=== PATIENT | female | born 1980 | race Caucasian/White ===

== ENCOUNTER 2018-03-06 09:16 | Emergency (ER) | payer BC ==
[2018-03-06] MEDS ORDERED: Sodium Chloride 0.9% 10 ML Syringe FLUSH PRN (09:24)
[2018-03-06] MEDS ORDERED: Iopamidol 612 MG/ML 100 ML Bottle IVPUSH ONE (10:01)
[2018-03-06 10:05] LABS: CHLORIDE,CL 104 mmol/L (98-107); SODIUM,NA 140 mmol/L (136-145)
[2018-03-06] MEDS ORDERED: dimenhyDRINATE 50 MG Tab PO ONE (11:38)
--- NOTE | 2018-03-06 14:53 | EDM.PDOC ---
ED HPI GENERAL MEDICAL PROBLEM - General Chief Complaint: Neuro Symptoms/Deficits Stated Complaint: LEFT SIDE NUMBNESS Time Seen by Provider: 03/06/18 09:20 Source of Information: Reports: Patient, Family History Limitations: Reports: No Limitations - History of Present Illness INITIAL COMMENTS - FREE TEXT/NARRATIVE: Pt. reported experiencing L sided facial and extremity paresthesia starting approx. at 0830 this AM. She states that she was also acutely vertiginous with symptoms worsening with turning of head to the L. She denies any acute vision loss or change. No head trauma. She denies any weakness or extremity heaviness recently. She states that she did have a headache last night. Denies any recent travel out of country. She states that she is a non-smoker and has not recently had any preventative medical care. Onset: Today Onset Date: 03/06/18 Onset Time: 08:30 Duration: Constant Location: Reports: Face (L side), Upper Extremity, Left, Lower Extremity, Left Quality: Reports: Other (paresthesia ) - Related Data Allergies Allergy/AdvReac Type Severity Reaction Status Date / Time No Known Allergies Allergy Verified 03/06/18 09:24 ED ROS GENERAL - Review of Systems Review Of Systems: See Below Constitutional: Reports: No Symptoms HEENT: Reports: Other (L sided facial numbness) Respiratory: Reports: No Symptoms Cardiovascular: Reports: No Symptoms Endocrine: Reports: No Symptoms GI/Abdominal: Reports: No Symptoms : Reports: No Symptoms Musculoskeletal: Reports: Other ( L upper and lower extremity numbness) Skin: Reports: No Symptoms Neurological: Reports: Other (Please see above. No acute vision loss or change. No trauma. No difficulty with speech or ambulation.) Psychiatric: Reports: No Symptoms Hematologic/Lymphatic: Reports: No Symptoms Immunologic: Reports: No Symptoms ED EXAM, GENERAL - Physical Exam Exam: See Below Exam Limited By: No Limitations General Appearance: Alert, WD/WN, No Apparent Distress Eye Exam: Bilateral Eye: EOMI, Normal Fundi, Normal Inspection, PERRL Ears: Normal External Exam, Normal Canal, Hearing Grossly Normal, Normal TMs Ear Exam: Bilateral Ear: Auricle Normal, Canal Normal, TM normal Nose: Normal Inspection, Normal Mucosa, No Blood Throat/Mouth: Normal Inspection, Normal Lips, Normal Teeth, Normal Gums, Normal Oropharynx, Normal Voice, No Airway Compromise Head: Atraumatic, Normocephalic Neck: Normal Inspection, Supple, Non-Tender, Full Range of Motion Respiratory/Chest: No Respiratory Distress, Lungs Clear, Normal Breath Sounds, No Accessory Muscle Use, Chest Non-Tender Cardiovascular: Normal Peripheral Pulses, Regular Rate, Rhythm, No Edema, No Gallop, No JVD, No Murmur, No Rub Peripheral Pulses: 4+: Radial (L), Radial (R) GI/Abdominal: Normal Bowel Sounds, Soft, Non-Tender, No Organomegaly, No Distention, No Abnormal Bruit, No Mass (Female) Exam: Deferred Rectal (Female) Exam: Deferred Back Exam: Normal Inspection, Full Range of Motion, NT Extremities: Normal Inspection, Normal Range of Motion, Non-Tender, Normal Capillary Refill, No Pedal Edema Neurological: Other (See attached NIH scale (score is 0)) Psychiatric: Normal Affect, Normal Mood Skin Exam: Warm, Dry, Intact, Normal Color, No Rash Lymphatic: No Adenopathy EKG INTERPRETATION Rhythm: NSR [place]: Normal P-Wave: Present QRS: Normal ST-T: Normal QT: Normal Course - Orders/Labs/Meds Orders: Active Orders 24 hr Category Date Time Status Blood Glucose Check, Bedside [RC] ONETIME Care 03/06/18 09:26 Active EKG Documentation Completion [RC] STAT Care 03/06/18 09:25 Active Ang Head [CT] Stat Exams 03/06/18 09:54 Taken Head wo Cont [CT] Stat Exams 03/06/18 09:25 Taken Sodium Chloride 0.9% [Saline Flush] Med 03/06/18 09:24 Active 10 ml FLUSH ASDIRECTED PRN Peripheral IV Insertion Adult [OM.PC] Routine Oth 03/06/18 09:25 Ordered Medication Orders Sodium Chloride (Saline Flush) 10 ml FLUSH ASDIRECTED PRN PRN Reason: Keep Vein Open Labs: Laboratory Tests 03/06/18 03/06/18 03/06/18 Range/Units 09:29 09:38 09:38 WBC 10.7 H (4.0-10.0) x10^3/uL RBC 5.09 (4.00-5.50) x10^6/uL Hgb 13.8 (12.0-16.0) g/dL Hct 41.5 (33.0-47.0) % MCV 81.5 (78.0-93.0) fL MCH 27.1 (26.0-32.0) pg MCHC 33.3 (32.0-36.0) g/dL RDW Coeff of Jimmy 13.0 (10.0-15.0) % Plt Count 331 (130-400) x10^3/uL Neut % (Auto) 59.9 (50.0-80.0) % Lymph % (Auto) 30.2 (25.0-50.0) % [place] % (Auto) 8.2 (2.0-11.0) % Eos % (Auto) 1.2 (0.0-4.0) % Baso % (Auto) 0.5 (0.2-1.2) % PT 9.9 (9.6-11.4) SEC INR 0.9 L (2.0-3.5) Sodium (136-145) mmol/L Potassium (3.5-5.1) mmol/L Chloride (98-107) mmol/L Carbon Dioxide (21-32) mmol/L Anion Gap (10-20) mmol/L BUN (7-18) mg/dL Creatinine (0.55-1.02) mg/dL Est Cr Clr Drug Dosing mL/min Estimated GFR (MDRD) Glucose (74-106) mg/dL POC Glucose 82 (74-106) mg/dL Calcium (8.5-10.1) mg/dL Corrected Calcium (8.5-10.1) mg/dL Total Bilirubin (0.2-1.0) mg/dL AST (15-37) U/L ALT (14-59) U/L Alkaline Phosphatase (46-116) U/L POC Troponin I (0.00-0.08) ng/mL C-Reactive Protein (<=0.9) mg/dL Total Protein (6.4-8.2) g/dL Albumin (3.4-5.0) g/dL Globulin Albumin/Globulin Ratio 03/06/18 03/06/18 Range/Units 09:38 09:44 WBC (4.0-10.0) x10^3/uL RBC (4.00-5.50) x10^6/uL Hgb (12.0-16.0) g/dL Hct (33.0-47.0) % MCV (78.0-93.0) fL MCH (26.0-32.0) pg MCHC (32.0-36.0) g/dL RDW Coeff of Jimmy (10.0-15.0) % Plt Count (130-400) x10^3/uL Neut % (Auto) (50.0-80.0) % Lymph % (Auto) (25.0-50.0) % [place] % (Auto) (2.0-11.0) % Eos % (Auto) (0.0-4.0) % Baso % (Auto) (0.2-1.2) % PT (9.6-11.4) SEC INR (2.0-3.5) Sodium 140 (136-145) mmol/L Potassium 3.5 (3.5-5.1) mmol/L Chloride 104 (98-107) mmol/L Carbon Dioxide 27 (21-32) mmol/L Anion Gap 12.5 (10-20) mmol/L BUN 11 (7-18) mg/dL Creatinine 0.7 (0.55-1.02) mg/dL Est Cr Clr Drug Dosing 109.08 mL/min Estimated GFR (MDRD) > 60 Glucose 89 (74-106) mg/dL POC Glucose (74-106) mg/dL Calcium 8.9 (8.5-10.1) mg/dL Corrected Calcium 9.38 (8.5-10.1) mg/dL Total Bilirubin 0.4 (0.2-1.0) mg/dL AST 17 (15-37) U/L ALT 27 (14-59) U/L Alkaline Phosphatase 73 (46-116) U/L POC Troponin I 0.00 (0.00-0.08) ng/mL C-Reactive Protein 2.2 H (<=0.9) mg/dL Total Protein 7.4 (6.4-8.2) g/dL Albumin 3.4 (3.4-5.0) g/dL Globulin 4.0 Albumin/Globulin Ratio 0.85 Meds: Medications Generic Name Dose Route Start Last Admin Trade Name Freq PRN Reason Stop Dose Admin Sodium Chloride 10 ml 03/06/18 09:24 Saline Flush FLUSH ASDIRECTED PRN Keep Vein Open Discontinued Medications Generic Name Dose Route Start Last Admin Trade Name Manuel PRN Reason Stop Dose Admin Dimenhydrinate 50 mg 03/06/18 11:38 03/06/18 11:47 Driminate PO 03/06/18 11:39 50 mg ONETIME ONE Administration Iopamidol 100 ml 03/06/18 10:01 03/06/18 10:34 Isovue-300 (61%) IVPUSH 03/06/18 10:02 100 ml ONETIME ONE Administration - Radiology Interpretation Free Text/Narrative:: CT brain and CTA brain negative for acute pathology Departure - Departure Time of Disposition: 13:00 Disposition: Home, Self-Care 01 Clinical Impression: Paresthesia of left arm and leg - Discharge Information Referrals: Sam Bliss MD [Primary Care Provider] - Forms: ED Department Discharge Additional Instructions: [facility] will be contacting you regarding an appointment for your MRI/MRA. Take an aspirin 81mg once daily. Return to ER if you have worsening symptoms, increased weakness, confusion, headache, difficulty with speech or ambulation. - My Orders Last 24 Hours: My Active Orders 03/06/18 09:24 Sodium Chloride 0.9% [Saline Flush] 10 ml FLUSH ASDIRECTED PRN 03/06/18 09:25 EKG Documentation Completion [RC] STAT Head wo Cont [CT] Stat Peripheral IV Insertion Adult [OM.PC] Routine 03/06/18 09:26 Blood Glucose Check, Bedside [RC] ONETIME 03/06/18 09:54 Ang Head [CT] Stat - Assessment/Plan Last 24 Hours: My Active Orders 03/06/18 09:24 Sodium Chloride 0.9% [Saline Flush] 10 ml FLUSH ASDIRECTED PRN 03/06/18 09:25 EKG Documentation Completion [RC] STAT Head wo Cont [CT] Stat Peripheral IV Insertion Adult [OM.PC] Routine 03/06/18 09:26 Blood Glucose Check, Bedside [RC] ONETIME 03/06/18 09:54 Ang Head [CT] Stat Plan: I spoke with stroke neurologist Dr. Moran at [facility] in [place]. She felt the pt. did not require admission, and felt that she should have an outpatient MRI/MRA this week. I spoke with Dr. Maria Del Carmen Bravo who accepted the pt. for follow-up and ordered the MRI. Pt. was started on Aspirin 81`mg once daily until seen by neuro.
== END 2018-03-06 12:30 | disposition home or self-care (01) ==
LOC: VM.ED 09:16
DX: R20.2 Paresthesia of skin (principal)
CPT/HCPCS: 36415; 70450; 70496; 80053; 82962; 84484; 85025; 85610; 86140; 93005; 99285; A9270-GY; Q9967

== ENCOUNTER 2018-05-15 08:39 | Emergency (ER) | payer BC, OTHER ==
--- NOTE | 2018-05-15 09:06 | EDM.PDOC ---
ED HPI GENERAL MEDICAL PROBLEM - General Chief Complaint: Chest Pain Stated Complaint: Chest Pain Time Seen by Provider: 05/15/18 09:03 Source of Information: Reports: Patient, RN, RN Notes Reviewed History Limitations: Reports: No Limitations - History of Present Illness INITIAL COMMENTS - FREE TEXT/NARRATIVE: Patient presents to the ED at [facility] complaining of left sided chest pain, tingling down left arm, and nausea. Symptoms started around 03:30 this AM. She states these symptoms are not new, but was more concerned with the nausea. She states she had a workup last week for the same symptoms. She states "they" thought it was a migraine, so she was treated as such. She had a CT and MRI of her brain without any acute pathology. She was seen in clinic last week and felt maybe her issues were inner ear. She has been referred to ENT, but is still waiting on a call. She states her epigastric symptoms seem like a twisting or tugging sensation. She has not vomited or had any diarrhea. No headache. No SOB. She also has what she calls "dizzy" spells. She had not recently fallen or had any head injury. No abdominal pain. No focal neurological problems. Onset: Today Onset Date: 05/15/18 Onset Time: 03:30 Left Upper Chest Pain Score (Numeric/FACES): 5 - Related Data Allergies Allergy/AdvReac Type Severity Reaction Status Date / Time No Known Allergies Allergy Verified 05/15/18 08:57 Home Meds: Home Meds . [No Known Home Meds] 05/15/18 [History] ED ROS GENERAL - Review of Systems Review Of Systems: See Below Constitutional: Denies: Fever, Chills, Weakness Respiratory: Denies: Shortness of Breath, Cough Cardiovascular: Reports: Chest Pain. Denies: Blood Pressure Problem, Lightheadedness, Palpitations GI/Abdominal: Reports: Nausea. Denies: Abdominal Pain, Diarrhea, Vomiting Musculoskeletal: Reports: Neck Pain (Left) Skin: Reports: No Symptoms Neurological: Reports: Dizziness, Tingling (Left arm). Denies: Headache, Numbness, Paresthesia ED EXAM, GENERAL - Physical Exam Exam: See Below Exam Limited By: No Limitations General Appearance: Alert, No Apparent Distress Neck: Normal Inspection, Supple, Full Range of Motion Respiratory/Chest: No Respiratory Distress, Lungs Clear, Normal Breath Sounds Cardiovascular: Normal Peripheral Pulses, Regular Rate, Rhythm, Other (left upper chest wall pain is reproducable on palpation) Peripheral Pulses: 2+: Radial (L), Radial (R) GI/Abdominal: Normal Bowel Sounds, Soft, Non-Tender Extremities: Normal Inspection, Normal Capillary Refill Neurological: Alert, Oriented Skin Exam: Warm, Dry, Intact, Normal Color EKG INTERPRETATION EKG Date: 05/15/18 Time: 08:40 Rhythm: NSR Rate (Beats/Min): 105 Blue: Normal P-Wave: Present QRS: Normal ST-T: Normal QT: Normal LA/PQ Interval: 0.17 Comparison: No Change EKG Interpretation Comments: 1. Sinus Tachycardia 2. Possible RV conduction delay 3. Possible anterior OK, probably old Course - Vital Signs Last Recorded V/S: Last Vital Signs Temp 36.8 C 05/15/18 08:40 Pulse 105 H 05/15/18 09:25 Resp 18 05/15/18 08:40 BP 98/54 L 05/15/18 09:25 Pulse Ox 98 05/15/18 08:40 - Orders/Labs/Meds Orders: Active Orders 24 hr Category Date Time Status EKG 12 Lead [EKG Documentation Completion] [RC] STAT Care 05/15/18 09:04 Active Chest 2V [CR] Stat Exams 05/15/18 09:04 Taken Labs: Laboratory Tests 05/15/18 05/15/18 05/15/18 Range/Units 09:17 09:17 09:17 WBC 11.5 H (4.0-10.0) x10^3/uL RBC 5.10 (4.00-5.50) x10^6/uL Hgb 13.9 (12.0-16.0) g/dL Hct 41.1 (33.0-47.0) % MCV 80.6 (78.0-93.0) fL MCH 27.3 (26.0-32.0) pg MCHC 33.8 (32.0-36.0) g/dL RDW Coeff of Jimmy 13.4 (10.0-15.0) % Plt Count 306 (130-400) x10^3/uL Neut % (Auto) 75.9 (50.0-80.0) % Lymph % (Auto) 17.4 L (25.0-50.0) % [place] % (Auto) 5.7 (2.0-11.0) % Eos % (Auto) 0.6 (0.0-4.0) % Baso % (Auto) 0.4 (0.2-1.2) % Sodium 136 (136-145) mmol/L Potassium 3.9 (3.5-5.1) mmol/L Chloride 105 (98-107) mmol/L Carbon Dioxide 28 (21-32) mmol/L Anion Gap 6.9 L (10-20) mmol/L BUN 9 (7-18) mg/dL Creatinine 0.6 (0.55-1.02) mg/dL Est Cr Clr Drug Dosing 108.26 mL/min Estimated GFR (MDRD) > 60 Glucose 114 H (74-106) mg/dL Calcium 9.1 (8.5-10.1) mg/dL Creatine Kinase 49 (26-192) U/L Troponin I < 0.017 (<=0.056) ng/mL Amylase 32 (25-115) U/L Lipase 214 (73-393) U/L Meds: Medications Discontinued Medications Generic Name Dose Route Start Last Admin Trade Name Freq PRN Reason Stop Dose Admin Ondansetron HCl 4 mg 05/15/18 09:30 05/15/18 09:49 Zofran Odt PO 05/15/18 09:31 4 mg ONETIME ONE Administration - Radiology Interpretation Free Text/Narrative:: CXR: No acute process See scanned report in EMR for details Departure - Departure Time of Disposition: 10:07 Disposition: Home, Self-Care 01 Reason for Transfer *Q: Other Condition: Good Clinical Impression: Left arm pain, Nausea Instructions: Nausea, Adult, Musculoskeletal Pain Referrals: Maria Del Carmen Bravo DO [Physician] - Forms: ED Department Discharge Additional Instructions: 1. No acute emergency found 2. Recommend making an appointment with Dr. Maria Del Carmen Bravo to follow up with your symptoms 3. Call us with any questions or concerns - Problem List Review Problem List Initiated/Reviewed/Updated: Yes - My Orders Last 24 Hours: My Active Orders 05/15/18 09:04 EKG 12 Lead [EKG Documentation Completion] [RC] STAT Chest 2V [CR] Stat - Assessment/Plan Last 24 Hours: My Active Orders 05/15/18 09:04 EKG 12 Lead [EKG Documentation Completion] [RC] STAT Chest 2V [CR] Stat Assessment:: Left arm pain/tingling Chest wall pain Plan: Labs and xray discussed with patient. No acute emergent pathology found regarding her symptoms. Recommend she contact [facility] regarding the ENT referral. I asked the patient to schedule an appointment with Dr. Maria Del Carmen Bravo to establish care and further eval/treatment. Given the neck symptoms, this certainly could be a cervical radiculopathy issue. She may benefit from physical therapy. As far as the nausea and "twisting" feeling in the epigastric area, patient may need a CT versus Ultrasound.
[2018-05-15 09:47] LABS: CHLORIDE,CL 105 mmol/L (98-107); SODIUM,NA 136 mmol/L (136-145)
[2018-05-15] MEDS: Ondansetron 4 MG Tab.DIS PO ONE (09:49)
[2018-05-15 09:53] LABS: ANION GAP 6.9 mmol/L (10-20)
== END 2018-05-15 10:25 | disposition home or self-care (01) ==
LOC: VM.ED 08:39
DX: R07.89 Other chest pain (principal); M79.602 Pain in left arm; R11.0 Nausea
CPT/HCPCS: 36415; 71046; 80048; 82150; 82550; 83690; 84484; 85025; 93005; 99284; 99285; A9270

== ENCOUNTER 2018-09-17 15:21 | Emergency (ER) | payer BC ==
--- NOTE | 2018-09-17 15:59 | EDM.PDOC ---
ED HPI GENERAL MEDICAL PROBLEM - General Chief Complaint: Cardiovascular Problem Stated Complaint: palpitations, fluttering Time Seen by Provider: 09/17/18 15:42 Source of Information: Reports: Patient History Limitations: Reports: No Limitations - History of Present Illness INITIAL COMMENTS - FREE TEXT/NARRATIVE: Patient presents with complaints of palpitations, feeling warm, then cool, then more palpitations. Has had similar episodes in the past with a holter monitor that showed some sinus tachycardia. She was placed on 12.5 mg of metoprolol. Echo was also performed, EF 65%, normal size left and right ventricles/atria. Normal valvular function with no stenosis. She denies any prior history of depression or anxiety, though she does admit that since these episodes have started, she does experience some anxiety when they occur. 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: Reports: ED ROS GENERAL - Review of Systems Review Of Systems: See Below Constitutional: Reports: No Symptoms HEENT: Reports: No Symptoms Respiratory: Reports: No Symptoms Cardiovascular: Reports: Palpitations Endocrine: Reports: No Symptoms GI/Abdominal: Reports: No Symptoms : Reports: No Symptoms Musculoskeletal: Reports: No Symptoms Skin: Reports: No Symptoms Neurological: Reports: No Symptoms Psychiatric: Reports: Anxiety Hematologic/Lymphatic: Reports: No Symptoms Immunologic: Reports: No Symptoms ED EXAM, GENERAL - Physical Exam Exam: See Below Exam Limited By: No Limitations General Appearance: Alert, WD/WN, No Apparent Distress Eye Exam: Bilateral Eye: EOMI, PERRL Ears: Normal TMs Nose: Normal Inspection, Normal Mucosa, No Blood Throat/Mouth: Normal Inspection, Normal Lips, Normal Teeth, Normal Gums, Normal Oropharynx, Normal Voice, No Airway Compromise Head: Atraumatic, Normocephalic Neck: Normal Inspection, Supple, Non-Tender, Full Range of Motion Respiratory/Chest: No Respiratory Distress, Lungs Clear, Normal Breath Sounds, No Accessory Muscle Use, Chest Non-Tender Cardiovascular: Normal Peripheral Pulses, Regular Rate, Rhythm, No Edema, No Gallop, No JVD, No Murmur, No Rub Peripheral Pulses: 2+: Posterior Tibial (L), Posterior Tibial (R), Dorsalis Pedis (L), Dorsalis Pedis (R) GI/Abdominal: Normal Bowel Sounds, Soft, Non-Tender, No Organomegaly, No Distention, No Abnormal Bruit, No Mass Extremities: Normal Inspection, Normal Range of Motion, Non-Tender, Normal Capillary Refill, No Pedal Edema Neurological: Alert, Oriented, CN II-XII Intact, Normal Cognition, Normal Gait, Normal Reflexes, No Motor/Sensory Deficits Psychiatric: Normal Affect, Anxious Skin Exam: Warm, Dry, Intact, Normal Color, No Rash Lymphatic: No Adenopathy Course - Vital Signs Last Recorded V/S: Last Vital Signs Temp 36.8 C 09/17/18 15:25 Pulse 74 09/17/18 15:25 Resp 24 H 09/17/18 15:25 BP 121/61 09/17/18 15:25 Pulse Ox 99 09/17/18 15:25 - Orders/Labs/Meds Orders: Active Orders 24 hr Category Date Time Status EKG Documentation Completion [RC] STAT Care 09/17/18 15:48 Active TSH ULTRASENSITIVE [CHEM] Stat Lab 09/17/18 16:03 Ordered Labs: Laboratory Tests 09/17/18 09/17/18 09/17/18 Range/Units 16:00 16:00 16:00 WBC 8.7 (4.0-10.0) x10^3/uL RBC 4.94 (4.00-5.50) x10^6/uL Hgb 13.6 (12.0-16.0) g/dL Hct 40.6 (33.0-47.0) % MCV 82.2 (78.0-93.0) fL MCH 27.5 (26.0-32.0) pg MCHC 33.5 (32.0-36.0) g/dL RDW Coeff of Jimmy 13.1 (10.0-15.0) % Plt Count 292 D (130-400) x10^3/uL Neut % (Auto) 71.0 (50.0-80.0) % Lymph % (Auto) 20.9 L (25.0-50.0) % [place] % (Auto) 6.9 (2.0-11.0) % Eos % (Auto) 0.9 (0.0-4.0) % Baso % (Auto) 0.3 (0.2-1.2) % PT 10.2 (9.6-11.4) SEC INR 1.0 L (2.0-3.5) Sodium 143 (136-145) mmol/L Potassium 3.7 (3.5-5.1) mmol/L Chloride 106 (98-107) mmol/L Carbon Dioxide 27 (21-32) mmol/L Anion Gap 13.7 (10-20) mmol/L BUN 11 (7-18) mg/dL Creatinine 0.7 (0.55-1.02) mg/dL Est Cr Clr Drug Dosing 176.71 mL/min Estimated GFR (MDRD) > 60 Glucose 114 H (74-106) mg/dL Calcium 9.3 (8.5-10.1) mg/dL Corrected Calcium 9.70 (8.5-10.1) mg/dL Magnesium 1.9 (1.8-2.4) mg/dL Total Bilirubin 0.3 (0.2-1.0) mg/dL AST 16 (15-37) U/L ALT 32 (14-59) U/L Alkaline Phosphatase 65 (46-116) U/L Troponin I < 0.017 (<=0.056) ng/mL Total Protein 7.5 (6.4-8.2) g/dL Albumin 3.5 (3.4-5.0) g/dL Globulin 4.0 Albumin/Globulin Ratio 0.88 Meds: Medications Discontinued Medications Generic Name Dose Route Start Last Admin Trade Name Freq PRN Reason Stop Dose Admin Alprazolam 0.5 mg 09/17/18 16:31 Xanax PO 09/17/18 16:32 NOW ONE Lorazepam 1 mg 09/17/18 16:07 Ativan PO 09/17/18 16:08 ONETIME ONE - Re-Assessments/Exams Free Text/Narrative Re-Assessment/Exam: 09/17/18 16:50 x-ray shows no evidence of acute process. Labwork and diagnostics normal. Follow up with her primary tomorrow. Departure - Departure Time of Disposition: 16:50 Disposition: Home, Self-Care 01 Condition: Good Clinical Impression: Palpitations, Paroxysmal supraventricular tachycardia Instructions: Supraventricular Tachycardia, Adult, [id number], Palpitations, [id number] Forms: ED Department Discharge Additional Instructions: Plan 1. Continue to follow up with your primary provider. You may need to follow up with cardiology. 2. You may need to increase either the dose of your metoprolol, or take it more often during the day. 3. If you have additional episodes, please feel free to come into the emergency room to be evaluated. 4. Stay well hydrated. 5. Keep a log/journal to determine if there are triggers, or stressful times that may be triggering these episodes. 6. Please call the emergency department with any additional questions or concerns. - Problem List & Annotations (1) Palpitations SNOMED Code(s): 44731003 Code(s): R00.2 - PALPITATIONS Status: Acute Priority: Low Current Visit : Yes (2) Paroxysmal supraventricular tachycardia SNOMED Code(s): 30600432 Code(s): I47.1 - SUPRAVENTRICULAR TACHYCARDIA Status: Acute Priority: Low Current Visit: Yes - Problem List Review Problem List Initiated/Reviewed/Updated: No - My Orders Last 24 Hours: My Active Orders 09/17/18 15:48 EKG Documentation Completion [RC] STAT 09/17/18 16:03 TSH ULTRASENSITIVE [CHEM] Stat - Assessment/Plan Last 24 Hours: My Active Orders 09/17/18 15:48 EKG Documentation Completion [RC] STAT 09/17/18 16:03 TSH ULTRASENSITIVE [CHEM] Stat Assessment:: Palpitations Tachycardia Plan: Plan 1. Continue to follow up with your primary provider. You may need to follow up with cardiology. 2. You may need to increase either the dose of your metoprolol, or take it more often during the day. 3. If you have additional episodes, please feel free to come into the emergency room to be evaluated. 4. Stay well hydrated. 5. Keep a log/journal to determine if there are triggers, or stressful times that may be triggering these episodes. 6. Please call the emergency department with any additional questions or concerns.
[2018-09-17] MEDS ORDERED: LORazepam 1 MG Tab PO ONE (16:07)
--- NOTE | 2018-09-17 16:24 | CR ---
[id number] RAD/RAD Chest PA or AP 1V EXAM: RAD Chest PA or AP 1V INDICATION: PALPITATIONS. COMPARISON: May 15, 2018. DISCUSSION: Cardiomediastinal silhouette is stable in size and contour. No infiltrate, effusion, pneumothorax, or edema. Linear hyperdensity overlying the right lower lung zone. IMPRESSION: No definite acute cardiopulmonary abnormality. Linear hyperdensity overlying the right lung zone may be external to the patient. Fede Aguilera DO 09/17/18 1623 Thank you for allowing us to participate in the care of your patient.
[2018-09-17] MEDS ORDERED: ALPRAZolam 0.5 MG Tab PO ONE (16:31)
[2018-09-17 16:32] LABS: CHLORIDE,CL 106 mmol/L (98-107); SODIUM,NA 143 mmol/L (136-145)
[2018-09-17 16:33] LABS: ANION GAP 13.7 mmol/L (10-20)
== END 2018-09-17 16:55 | disposition home or self-care (01) ==
LOC: VM.ED 15:21
DX: I47.1 Supraventricular tachycardia (principal); R00.2 Palpitations; Z79.899 Other long term (current) drug therapy
CPT/HCPCS: 36415; 71045; 80053; 83735; 84443; 84484; 85025; 85610; 93005; 99285; A9270-GY

== ENCOUNTER 2018-09-21 20:04 | Emergency (ER) | payer BC ==
[2018-09-21] MEDS ORDERED: cloNIDine 0.1 MG Tab PO ONE (20:13)
[2018-09-21] MEDS ORDERED: hydrOXYzine HCl 25 MG Tab PO ONE (20:13)
--- NOTE | 2018-09-21 20:20 | EDM.PDOC ---
ED HPI GENERAL MEDICAL PROBLEM - General Stated Complaint: CHEST PAINS Time Seen by Provider: 09/21/18 20:04 Source of Information: Reports: Patient History Limitations: Reports: No Limitations - History of Present Illness INITIAL COMMENTS - FREE TEXT/NARRATIVE: Patient comes into the emergency department with chest pain. She states it's been going on now for approximately for 5 days. She was in the emergency department on Monday with similar symptoms. She was diagnosed with anxiety attack at that time frame. Patient comes in today stating that she has start Lexapro recently to help with her anxiety and depression. She states that today things were going fairly well and she had no anxiety or depressive symptoms. And then all of a sudden this afternoon she had heart palpitations and vision changes. She feels like her heart is pounding out of her chest. She feels like there is a lot of tension on her shoulders. Patient denies any SOB, abdominal concerns, edema, or headache. Onset: Gradual Improves with: Reports: None Worsens with: Reports: None Associated Symptoms: Reports: No Other Symptoms Chest Pain Pain Score (Numeric/FACES): 9 - Related Data Allergies Allergy/AdvReac Type Severity Reaction Status Date / Time No Known Allergies Allergy Verified 09/21/18 20:35 Home Meds: Home Meds Metoprolol Tartrate 12.5 mg PO DAILY 08/01/18 [History] Escitalopram [Lexapro] 10 mg PO DAILY 09/21/18 [History] hydrOXYzine HCl [hydrOXYzine] 25 mg PO BID PRN #20 tab 09/21/18 [Rx] Past Medical History Cardiovascular History: Reports: Other (See Below) Other Cardiovascular History: sinus tachycardia 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: Psychiatric History: Reports: Anxiety - Past Surgical History Female Surgical History: Reports: Section ED ROS GENERAL - Review of Systems Review Of Systems: See Below Constitutional: Reports: No Symptoms HEENT: Reports: No Symptoms Respiratory: Reports: No Symptoms Cardiovascular: Reports: Palpitations GI/Abdominal: Reports: No Symptoms : Reports: No Symptoms Musculoskeletal: Reports: No Symptoms Skin: Reports: No Symptoms Neurological: Reports: No Symptoms Psychiatric: Reports: Anxiety, Depression Hematologic/Lymphatic: Reports: No Symptoms Immunologic: Reports: No Symptoms ED EXAM, GENERAL - Physical Exam Exam: See Below Exam Limited By: No Limitations General Appearance: Alert, WD/WN, No Apparent Distress Head: Atraumatic, Normocephalic Respiratory/Chest: No Respiratory Distress, Lungs Clear, No Accessory Muscle Use , Chest Non-Tender Cardiovascular: Normal Peripheral Pulses, Regular Rate, Rhythm Peripheral Pulses: 3+: Radial (L), Radial (R) GI/Abdominal: Normal Bowel Sounds, Soft, Non-Tender, No Distention Back Exam: Normal Inspection, Full Range of Motion Extremities: Normal Inspection, Normal Range of Motion, Non-Tender, Normal Capillary Refill Neurological: Alert, Oriented, Normal Gait Psychiatric: Anxious Skin Exam: Warm, Dry, Intact, Normal Color Course - Vital Signs Last Recorded V/S: Last Vital Signs Temp 36.1 C 09/21/18 20:05 Pulse 65 09/21/18 21:19 Resp 12 09/21/18 21:19 BP 115/69 09/21/18 21:19 Pulse Ox 95 09/21/18 21:19 - Orders/Labs/Meds Orders: Active Orders 24 hr Category Date Time Status Cardiac Monitoring [RC] . DIRECTED Care 09/21/18 21:22 Active EKG Documentation Completion [RC] STAT Care 09/21/18 21:22 Active Labs: Laboratory Tests 09/21/18 09/21/18 Range/Units 20:56 20:56 WBC 9.4 (4.0-10.0) x10^3/uL RBC 4.80 (4.00-5.50) x10^6/uL Hgb 13.3 (12.0-16.0) g/dL Hct 39.4 (33.0-47.0) % MCV 82.1 (78.0-93.0) fL MCH 27.7 (26.0-32.0) pg MCHC 33.8 (32.0-36.0) g/dL RDW Coeff of Jimmy 12.9 (10.0-15.0) % Plt Count 298 (130-400) x10^3/uL Neut % (Auto) 61.2 (50.0-80.0) % Lymph % (Auto) 27.9 (25.0-50.0) % [place] % (Auto) 9.3 (2.0-11.0) % Eos % (Auto) 0.9 (0.0-4.0) % Baso % (Auto) 0.7 (0.2-1.2) % Sodium 140 (136-145) mmol/L Potassium 3.6 (3.5-5.1) mmol/L Chloride 104 (98-107) mmol/L Carbon Dioxide 25 (21-32) mmol/L Anion Gap 14.6 (10-20) mmol/L BUN 15 (7-18) mg/dL Creatinine 0.6 (0.55-1.02) mg/dL Est Cr Clr Drug Dosing 108.26 mL/min Estimated GFR (MDRD) > 60 Glucose 102 (74-106) mg/dL Calcium 9.6 (8.5-10.1) mg/dL Corrected Calcium 10.08 (8.5-10.1) mg/dL Total Bilirubin 0.3 (0.2-1.0) mg/dL AST 13 L (15-37) U/L ALT 27 (14-59) U/L Alkaline Phosphatase 66 (46-116) U/L Troponin I < 0.017 (<=0.056) ng/mL Total Protein 7.2 (6.4-8.2) g/dL Albumin 3.4 (3.4-5.0) g/dL Globulin 3.8 Albumin/Globulin Ratio 0.89 Meds: Medications Discontinued Medications Generic Name Dose Route Start Last Admin Trade Name Freq PRN Reason Stop Dose Admin Clonidine HCl 0.1 mg 09/21/18 20:13 09/21/18 20:25 Catapres PO 09/21/18 20:14 0.1 mg ONETIME ONE Administration Hydroxyzine HCl 50 mg 09/21/18 20:13 09/21/18 20:26 Atarax PO 09/21/18 20:14 50 mg ONETIME ONE Administration - Re-Assessments/Exams Free Text/Narrative Re-Assessment/Exam: 09/21/18 21:30 Pt feels better. Feels the symptoms have resolved. VSS. Pt have no concerns and would like to go home. Departure - Departure Time of Disposition: 21:30 Disposition: Home, Self-Care 01 Condition: Good Clinical Impression: Anxiety attack - Discharge Information *PRESCRIPTION DRUG MONITORING PROGRAM REVIEWED*: Not Applicable *COPY OF PRESCRIPTION DRUG MONITORING REPORT IN PATIENT [place]: Not Applicable Prescriptions: hydrOXYzine HCl [hydrOXYzine] 25 mg PO BID PRN #20 tab PRN Reason: Anxiety Instructions: Panic Attack Additional Instructions: 1. rest 2. Follow up with PCP regarding panic attacks to look at snf medications to help with panic attack 3. activity and diet as tolerated 4. It is advisable to set up with an individual therapist to work on your coping mechanisms related to your anxiety and depression 5. Follow up as needed 6. All labs completed tonight were within normal limits 7. Call with any questions or concerns - My Orders Last 24 Hours: My Active Orders 09/21/18 21:22 Cardiac Monitoring [RC] . DIRECTED EKG Documentation Completion [RC] STAT - Assessment/Plan Last 24 Hours: My Active Orders 09/21/18 21:22 Cardiac Monitoring [RC] . DIRECTED EKG Documentation Completion [RC] STAT Assessment:: 1. anxiety 2. Chest pain Plan: 1. EKG completed results reviewed with the pt 2. Labs complete in ER. 3. Clonidine and hydroxyzine given in the ER to help with anxiety 4. Education regarding activity, diet, anxiety attack, and follow up provided 5. All questions and concerns answered prior to discharge
[2018-09-21 21:27] LABS: ANION GAP 14.6 mmol/L (10-20); CHLORIDE,CL 104 mmol/L (98-107); SODIUM,NA 140 mmol/L (136-145)
== END 2018-09-21 21:45 | disposition home or self-care (01) ==
LOC: VM.ED 20:04 → SUPCPDRO 20:04 → VM.ED 21:45
DX: F41.9 Anxiety disorder, unspecified (principal); Z79.899 Other long term (current) drug therapy
CPT/HCPCS: 36415; 80053; 84484; 85025; 93005; 99284; A9270

== ENCOUNTER 2019-09-03 11:29 | Emergency (ER) | payer BC ==
--- NOTE | 2019-09-03 12:17 | CT ---
[id number] CT/CT Cervical Spine WO IV EXAM: CT Cervical Spine WO IV INDICATION: CODE GREEN, DYSCONJUGATE GAZE. COMPARISON: None. DISCUSSION: No fracture or compression deformity. Vertebral bodies remain in normal alignment. 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 No acute fracture or compression deformity. No prevertebral soft tissue edema. Lung apices are clear. IMPRESSION: No acute findings in the cervical spine. Ariel Huff MD 09/03/19 [id number] Thank you for allowing us to participate in the care of your patient.
--- NOTE | 2019-09-03 12:18 | EDM.PDOC ---
ED HPI GENERAL MEDICAL PROBLEM - General Stated Complaint: DIZZY,DOUBLE VISION Time Seen by Provider: 09/03/19 11:30 Source of Information: Reports: Patient, RN Notes Reviewed History Limitations: Reports: No Limitations - History of Present Illness INITIAL COMMENTS - FREE TEXT/NARRATIVE: Pt. presents to ER with complaints of blurred vision that started intermittently yesterday. She states that she can focus if she covers her L eye. She states that when she woke up this AM, the symptoms were constant and severe enough that they were causing her vertigo/nausea. Her only other complain is that of neck pain, but she attributes this to lying on an uncomfortable guest bed. Pt. denies any head or facial trauma. No problems with speech or ambulation. No numbness/tingling/weakness in extremities. states that her gait has been unaffected. 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 Denies : Confusion, Headache, Numbness, Paresthesia, Pre-Existing Deficit, Seizure, Syncope, Tingling, Tremors, Trouble Speaking, Difficulty Walking, Weakness, Change in Speech, Gait Disturbance Psychiatric: Reports: No Symptoms Hematologic/Lymphatic: Reports: No Symptoms Immunologic: Reports: No Symptoms ED EXAM, GENERAL - Physical Exam Exam: See Below Exam Limited By: No Limitations General Appearance: Alert, WD/WN, No Apparent Distress Eye Exam: Right Eye: EOMI (gaze is dysconjugate. L eye does not track freely. Pt. was unable to track a finger past midline with L eye), Bilateral Eye: Normal Inspection, PERRL Nose: Normal Inspection, Normal Mucosa, No Blood Throat/Mouth: Normal Inspection, Normal Lips, Normal Teeth, Normal Gums, Normal Oropharynx, Normal Voice, No Airway Compromise Head: Atraumatic, Normocephalic Neck: Normal Inspection, Supple, Non-Tender, Full Range of Motion Respiratory/Chest: No Respiratory Distress, Lungs Clear, Normal Breath Sounds, No Accessory Muscle Use, Chest Non-Tender Cardiovascular: Normal Peripheral Pulses, Regular Rate, Rhythm, No Edema, No Gallop, No JVD, No Murmur, No Rub GI/Abdominal: Normal Bowel Sounds, Soft, Non-Tender, No Organomegaly, No Distention, No Abnormal Bruit, No Mass (Female) Exam: Deferred Rectal (Female) Exam: Deferred Back Exam: Normal Inspection, Full Range of Motion, NT Extremities: Normal Inspection, Normal Range of Motion, Non-Tender, Normal Capillary Refill, No Pedal Edema Neurological: Alert, Oriented, CN II-XII Intact, Normal Cognition, Normal Gait, Normal Reflexes, No Motor/Sensory Deficits Psychiatric: Normal Affect, Normal Mood Skin Exam: Warm, Dry, Intact, Normal Color, No Rash Course - Orders/Labs/Meds Labs: Laboratory Tests 09/03/19 09/03/19 09/03/19 Range/Units 11:36 11:36 11:36 WBC 8.4 (4.0-10.0) x10^3/uL RBC 5.11 (4.00-5.50) x10^6/uL Hgb 13.7 (12.0-16.0) g/dL Hct 41.1 (33.0-47.0) % MCV 80.4 (78.0-93.0) fL MCH 26.8 (26.0-32.0) pg MCHC 33.3 (32.0-36.0) g/dL RDW Coeff of Jimmy 12.9 (10.0-15.0) % Plt Count 345 (130-400) x10^3/uL Neut % (Auto) 63.0 (50.0-80.0) % Lymph % (Auto) 27.6 (25.0-50.0) % Saline % (Auto) 7.5 (2.0-11.0) % Eos % (Auto) 1.4 (0.0-4.0) % Baso % (Auto) 0.5 (0.2-1.2) % PT 10.4 (10.0-12.8) SEC INR 0.9 L (2.0-3.5) APTT 25.1 (24.0-36.0) SEC Sodium 142 (136-145) mmol/L Potassium 4.1 (3.5-5.1) mmol/L Chloride 105 (98-107) mmol/L Carbon Dioxide 27 (21-32) mmol/L Anion Gap 14.1 (10-20) mmol/L BUN 11 (7-18) mg/dL Creatinine 0.6 (0.55-1.02) mg/dL Est Cr Clr Drug Dosing TNP Estimated GFR (MDRD) > 60 Glucose 90 (74-106) mg/dL POC Glucose (74-106) mg/dL Calcium 9.1 (8.5-10.1) mg/dL POC Troponin I (0.00-0.08) ng/mL 09/03/19 09/03/19 Range/Units 11:41 12:02 WBC (4.0-10.0) x10^3/uL RBC (4.00-5.50) x10^6/uL Hgb (12.0-16.0) g/dL Hct (33.0-47.0) % MCV (78.0-93.0) fL MCH (26.0-32.0) pg MCHC (32.0-36.0) g/dL RDW Coeff of Jimmy (10.0-15.0) % Plt Count (130-400) x10^3/uL Neut % (Auto) (50.0-80.0) % Lymph % (Auto) (25.0-50.0) % Saline % (Auto) (2.0-11.0) % Eos % (Auto) (0.0-4.0) % Baso % (Auto) (0.2-1.2) % PT (10.0-12.8) SEC INR (2.0-3.5) APTT (24.0-36.0) SEC Sodium (136-145) mmol/L Potassium (3.5-5.1) mmol/L Chloride (98-107) mmol/L Carbon Dioxide (21-32) mmol/L Anion Gap (10-20) mmol/L BUN (7-18) mg/dL Creatinine (0.55-1.02) mg/dL Est Cr Clr Drug Dosing Estimated GFR (MDRD) Glucose (74-106) mg/dL POC Glucose 81 (74-106) mg/dL Calcium (8.5-10.1) mg/dL POC Troponin I 0.00 (0.00-0.08) ng/mL - Radiology Interpretation Free Text/Narrative:: CT brain and c-spine were obtained, both negative for acute pathology. Departure - Departure Time of Disposition: 12:40 Disposition: DC/Tfer to [facility] 02 Clinical Impression: Dysconjugate gaze - Discharge Information Referrals: Luz Elena Godfrey MD [Primary Care Provider] - Forms: Interfacility Transfer [facility] Sepsis Event Note - Focused Exam Date Exam was Performed: 09/03/19 Time Exam was Performed: 12:33 - Problem List Review Problem List Initiated/Reviewed/Updated: Yes - Assessment/Plan Plan: Discussed findings with neurology who suggested that the patient come to [facility] for MRI of her brain and orbits. Dr. Camacho at [facility] accepts patient in transfer. It is felt that the patient can come to [place] via private vehicle. She has an IV in which we won't remove; she is very low risk for misuse of this. Pt. NIH stroke scale is 2 (see attached). All questions were answered.
--- NOTE | 2019-09-03 12:19 | CT ---
[id number] CT/CT Head Stroke Protocol EXAM: CT Head Stroke Protocol CLINICAL DATA: CODE GREEN, DYSCONJUGATE GAZE. COMPARISON STUDY: None FINDINGS: No intracranial hemorrhage, extra-axial fluid collection, mass, or acute ischemia. No hydrocephalus. Paranasal sinuses and mastoid air cells are clear. IMPRESSION: Normal examination of the brain. Results relayed to Kendall Ragland at time of dictation. Ariel Huff MD 09/03/19 [id number] Thank you for allowing us to participate in the care of your patient.
[2019-09-03 12:20] LABS: ANION GAP 14.1 mmol/L (10-20); CHLORIDE,CL 105 mmol/L (98-107); SODIUM,NA 142 mmol/L (136-145)
== END 2019-09-03 12:50 | disposition short-term general hospital (02) ==
LOC: VM.ED 11:29
DX: H55.89 Other irregular eye movements (principal); F41.9 Anxiety disorder, unspecified; Z79.899 Other long term (current) drug therapy
CPT/HCPCS: 70450; 72125; 80048; 82962; 84484; 85025; 85610; 85730; 93005; 99285-25

== ENCOUNTER 2021-08-21 19:06 | Emergency (ER) | payer BC, OTHER ==
[2021-08-21] MEDS ORDERED: Take Home: Amoxicillin/Clavulanate K 875-125 MG Tab, 2 Tab Pack PO ONE (19:27)
--- NOTE | 2021-08-21 19:51 | EDM.PDOC ---
ED HPI GENERAL MEDICAL PROBLEM - General Chief Complaint: ENT Problem Stated Complaint: L EAR ACHE Time Seen by Provider: 08/21/21 19:18 Source of Information: Reports: Patient - History of Present Illness INITIAL COMMENTS - FREE TEXT/NARRATIVE: Pt. presents to ER with complaints of L ear pain. Pt. states that the pain started intermittently on last Monday. Pt. states that the past 2 days the pain has gotten worse. She has a history of previous otitis media as an adult in the past. Denies any ear problems as a child. She states that she also has cough, sinus congestion, sore throat, and rhinorrhea. Pt. denies any fever or chills. No chest pain or shortness of breath. No nausea, vomiting, or diarrhea. No rashes. Denies any trauma to the area. Denies any flying, diving, or activities that could result in barotrauma to the ear. 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 ED EXAM, GENERAL - Physical Exam Exam: See Below Exam Limited By: No Limitations General Appearance: Alert, WD/WN, No Apparent Distress Ear Exam: Left Ear: TM Dull, TM Bulging Nose: Normal Inspection, Normal Mucosa, No Blood Throat/Mouth: Normal Inspection, Normal Lips, Normal Teeth, Normal Gums, Normal Oropharynx, Normal Voice, No Airway Compromise Head: Atraumatic, Normocephalic Neck: Normal Inspection, Supple, Non-Tender, Full Range of Motion Respiratory/Chest: No Respiratory Distress, Lungs Clear, Normal Breath Sounds, No Accessory Muscle Use, Chest Non-Tender Cardiovascular: Normal Peripheral Pulses, Regular Rate, Rhythm, No Edema, No Gallop, No JVD, No Murmur, No Rub Course - Vital Signs Last Recorded V/S: Last Vital Signs Temp 36.6 C 08/21/21 19:18 Pulse 76 08/21/21 19:18 Resp 17 08/21/21 19:18 BP Pulse Ox 100 08/21/21 19:18 - Orders/Labs/Meds Meds: Medications Discontinued Medications Generic Name Dose Route Start Last Admin Trade Name Freq PRN Reason Stop Dose Admin Amoxicillin/Clavulanate Potassium 2 packet 08/21/21 19:27 08/21/21 19:31 Take Home: Amoxicillin/Clavulanate K 875-125 Mg Tab, 2 Tab Pack PO 08/21/21 19:28 2 packet ONETIME ONE Administration Departure - Departure Time of Disposition: 19:30 Disposition: Home, Self-Care 01 Clinical Impression: Otitis media - Discharge Information Instructions: Otitis Media, Adult, [id number] Referrals: Luz Elena Godfrey MD [Primary Care Provider] - Forms: ED Department Discharge Additional Instructions: Home to rest. Off work tomorrow, or until you have been without fever for 24 hours. Augmentin 875mg 1 tab twice daily for 10 days Ibuprofen 200mg 3 tabs every 6 hours for pain Recheck in clinic in 10-14 days Sepsis Event Note (ED) - Evaluation Sepsis Screening Result: No Definite Risk - Focused Exam Vital Signs: Vital Signs Temp Pulse Resp Pulse Ox 08/21/21 19:18 36.6 C 76 17 100 - Problem List Review Problem List Initiated/Reviewed/Updated: Yes - Assessment/Plan Plan: Home to rest. Off work tomorrow, or until you have been without fever for 24 hours. Augmentin 875mg 1 tab twice daily for 10 days Ibuprofen 200mg 3 tabs every 6 hours for pain Recheck in clinic in 10-14 days
== END 2021-08-21 19:44 | disposition home or self-care (01) ==
LOC: VM.ED 19:06
DX: H66.92 Otitis media, unspecified, left ear (principal)
CPT/HCPCS: 99282; 99283; A9270-GY

== ENCOUNTER 2023-03-12 10:43 | Emergency (ER) | payer OTHER ==
[2023-03-12] MEDS ORDERED: Sodium Chloride 0.9% 10 ML Syringe FLUSH PRN (11:28)
[2023-03-12] MEDS ORDERED: Meclizine 25 MG Tab PO ONE (11:35)
== END 2023-03-12 12:06 | disposition other institution (70) ==
LOC: VM.ED 10:43
DX: H53.2 Diplopia (principal); R42 Dizziness and giddiness
CPT/HCPCS: 82947; 99285; A9270-GY